=== PATIENT | female | born 1960 | race Native Hawaiian/Other Pacific Islander ===

== ENCOUNTER 2018-05-10 12:30 | Inpatient (IN) | payer SELFPAY ==
[2018-05-10] MEDS ORDERED: MORPHINE IV ONE ×2 (12:52→16:31)
[2018-05-10] MEDS ORDERED: NACL 0.9% 1000 ML 1,000 ML IV ONE (12:52)
[2018-05-10] MEDS ORDERED: ZOFRAN IV ONE (12:52)
[2018-05-10] MEDS ORDERED: PEPCID IV ONE (12:52)
[2018-05-10] MEDS ORDERED: TORADOL IV ONE (12:52)
--- NOTE | 2018-05-10 12:57 | Emergency Department Report ---
ED Abdominal Pain HPI - General Chief Complaint: Abdominal Pain Stated Complaint: STOMACH PAIN/ABD/SIDE Time Seen by Provider: 05/10/18 12:48 Source: patient Mode of arrival: Wheelchair Limitations: No Limitations - History of Present Illness Initial Comments: Patient is a 57-year-old female who is presenting with 3 days of nausea with abdominal pain. Patient's abdominal pain is located in the right upper quadrant. Patient states is also pain in epigastrium and right lower quadrant as well. Patient is very nauseous and has had decreased appetite. Patient last known meal was several days ago and was [place]. The patient denies any fever but does have some occasional chills. Patient has had some loose stools as well. Patient denies cough and congestion. Severity scale (0 -10): 8 Improves With: nothing Worsens With: nothing - Related Data Allergies Allergy/AdvReac Type Severity Reaction Status Date / Time No Known Allergies Allergy Unverified 05/10/18 12:38 ED Review of Systems ROS: Stated complaint: STOMACH PAIN/ABD/SIDE Other details as noted in HPI Comment: All other systems reviewed and negative ED Past Medical Hx - Past Medical History Previous Medical History?: Yes Additional medical history: Spinal stenosis, neuropathy - Surgical History Past Surgical History?: No - Social History Smoking Status: Never Smoker Substance Use Type: None ED Physical Exam - General Limitations: No Limitations General appearance: alert, in no apparent distress - Head Head exam: Present: atraumatic, normocephalic - Eye Eye exam: Present: normal appearance - ENT ENT exam: Present: mucous membranes moist - Neck Neck exam: Present: normal inspection - Respiratory Respiratory exam: Present: normal lung sounds bilaterally. Absent: respiratory distress, wheezes, rales - Cardiovascular Cardiovascular Exam: Present: regular rate, normal rhythm, normal heart sounds. Absent: systolic murmur, diastolic murmur, rubs, gallop - GI/Abdominal GI/Abdominal exam: Present: soft, tenderness (patient with pain in the epigastrium and right upper and lower quadrant. Pain is worse on the right upper quadrant. Patient does have some involuntary guarding in proceeding in the right upper quadrant.), guarding, normal bowel sounds. Absent: distended, rebound, rigid - Extremities Exam Extremities exam: Present: normal inspection - Back Exam Back exam: Present: normal inspection - Neurological Exam Neurological exam: Present: alert, oriented X3 - Psychiatric Psychiatric exam: Present: normal affect, normal mood - Skin Skin exam: Present: warm, dry, intact, normal color. Absent: rash ED Course Vital Signs 05/10/18 12:35 Temperature 98.3 F Pulse Rate 101 H Respiratory 16 Rate Blood Pressure 101/61 O2 Sat by Pulse 98 Oximetry ED Medical Decision Making - Lab Data Result diagrams: 05/10/18 13:30 05/10/18 13:30 Lab Results 05/10/18 05/10/18 Range/Units 13:30 13:30 WBC 11.7 H (4.5-11.0) K/mm3 RBC 4.80 (3.65-5.03) M/mm3 Hgb 13.9 (10.1-14.3) gm/dl Hct 41.1 (30.3-42.9) % MCV 86 (79-97) fl MCH 29 (28-32) pg MCHC 34 (30-34) % RDW 13.9 (13.2-15.2) % Plt Count 205 (140-440) K/mm3 Lymph % (Auto) 8.5 L (13.4-35.0) % [place] % (Auto) 7.7 H (0.0-7.3) % Eos % (Auto) 1.3 (0.0-4.3) % Baso % (Auto) 0.3 (0.0-1.8) % Lymph # 1.0 L (1.2-5.4) K/mm3 [place] # 0.9 H (0.0-0.8) K/mm3 Eos # 0.1 (0.0-0.4) K/mm3 Baso # 0.0 (0.0-0.1) K/mm3 Seg Neutrophils % 82.2 H (40.0-70.0) % Seg Neutrophils # 9.6 H (1.8-7.7) K/mm3 Sodium 138 (137-145) mmol/L Potassium 5.0 (3.6-5.0) mmol/L Chloride 97.6 L (98-107) mmol/L Carbon Dioxide 27 (22-30) mmol/L Anion Gap 18 mmol/L BUN 13 (7-17) mg/dL Creatinine 0.7 (0.7-1.2) mg/dL Estimated GFR > 60 ml/min BUN/Creatinine Ratio 19 % Glucose 227 H (65-100) mg/dL Calcium 9.2 (8.4-10.2) mg/dL Total Bilirubin 0.90 (0.1-1.2) mg/dL Direct Bilirubin 0.3 H (0-0.2) mg/dL Indirect Bilirubin 0.6 mg/dL AST 10 (5-40) units/L ALT 15 (7-56) units/L Alkaline Phosphatase 61 (35-129) units/L Total Protein 7.6 (6.3-8.2) g/dL Albumin 4.0 (3.9-5) g/dL Albumin/Globulin Ratio 1.1 % Lipase 11 L (13-60) units/L - Radiology Data [facility] [address] [place] [address] Cat Scan Report Signed Patient: TASNEEM MCGARRY MR#: [id number] : 1960 Acct:[id number] Age/Sex: 57 / F ADM Date: 05/10/18 Loc: ED Attending Dr: Ordering Physician: MARTINE PERKINS MD Date of Service: 05/10/18 Procedure(s): CT abdomen pelvis w con Accession Number(s): [id number] cc: MARTINE PERKINS MD FINAL REPORT EXAM: CT ABDOMEN PELVIS W CON HISTORY: right sided abd pain TECHNIQUE: CT examination of the ABDOMEN after IV contrast CT examination of the PELVIS after IV contrast PRIORS: None. FINDINGS: Linear scar versus atelectasis both lung bases. Degenerative change in the regional skeleton. No acute fracture. Nonspecific diffusely decreased density of liver parenchyma may reflect fatty infiltration. No visualized focal liver lesion. There is focal fatty sparing adjacent to the gallbladder fossa. Liver size is enlarged with sagittal dimension 21 cm. Large calcified gallstones are noted in the gallbladder lumen. Although the gallbladder wall is not thickened, there is nonspecific pericholecystic fat stranding. There is also slight pericholecystic fluid. These findings raise suspicion of calculus cholecystitis. Slight wall thickening in the adjacent duodenum may be reactive. There is also nonspecific wall thickening and adjacent fat stranding in the hepatic flexure which may be reactive. Differential includes coexistent colitis. There is associated reactive trace free fluid in the right pericolic gutter. Normal-appearing cecum and terminal ileum. Normal appendix.Normal-appearing adrenals and pancreas. Intact normal caliber abdominal aorta and IVC. Nonspecific triangular subcapsular hypodensity in the spleen may reflect a region of ischemia or hypoperfusion. Differential includes infarct, inflammation, or infection. Neoplastic lesion considered less likely given triangular configuration. No renal calculus or hydronephrosis. No evidence of renal mass. No calculus or distention in the visible ureteral segments. Very small fat containing umbilical hernia. No inguinal hernia. No retroperitoneal adenopathy. No evidence of mesenteric mass. Normal-appearing stomach and duodenum. No small bowel distention in the abdomen and pelvis. Slight pelvic free fluid may be reactive. Nonspecific diffuse urinary bladder wall thickening may be artifact of decompre ssion. Differential includes cystitis. Normal-appearing uterus. No adnexal mass. Normal-appearing rectum. Slight distal sigmoid diverticulosis without CT evidence of diverticulitis. No gross ascites, free air, or colonic distention. Nonspecific mural thickening is noted in the proximal sigmoid colon and diffusely throughout the descending colon. IMPRESSION: Findings suggest calculus cholecystitis. Inflammatory type change in the adjacent duodenal C-loop and colonic hepatic flexure may be reactive. Cannot exclude separate duodenitis and/or hepatic flexure colitis Fluid in the right pericolic gutter and pelvis may be reactive Prominent diffuse urinary bladder mural thickening may be artifact of decompression. Differential includes cystitis Mural thickening in the descending colon and proximal sigmoid colon may be edema, inflammation, or nonspecific colitis. Consider also inflammatory bowel disease. Differential includes ischemia Triangular hypodensity in the splenic parenchyma may reflect a region of ischemia or hypoperfusion. Differential includes infarct, inflammation, or infection. Neoplasm considered less likely given triangular configuration Linear scar versus atelectasis both lung bases Hepatomegaly with suggestion of steatosis Slight distal sigmoid diverticulosis Transcribed By: MICHAEL Dictated By: HANNA TIWARI MD Electronically Authenticated By: HANNA TIWARI MD Signed Date/Time: 05/10/181616 DD/ 18 TD/TT: 05/10/181618 - Medical Decision Making Patient was started on Zosyn. Patient made nothing by mouth. Patient readmitted to the hospital. Patient admitted to Dr. Ward. Dr. Dominique with general surgery has been consulted as well. Critical care attestation.: If time is entered above; I have spent that time in minutes in the direct care of this critically ill patient, excluding procedure time. ED Disposition Clinical Impression: Cholecystitis, Colitis Disposition: DC09 OP ADMIT IP TO THIS HOSP Is pt being admited?: Yes Does the pt Need Aspirin: No Condition: Stable Time of Disposition: 16:51
[2018-05-10 13:42] LABS: Basophils % (Auto) 0.3 % (0.0-1.8); Eosinophils # (Auto) 0.1 K/mm3 (0.0-0.4); Eosinophils % (Auto) 1.3 % (0.0-4.3); Hematocrit 41.1 % (30.3-42.9); Hemoglobin 13.9 gm/dl (10.1-14.3); Lymphocytes % (Auto) 8.5 % (13.4-35.0); Mean Corpuscular HGB Conc 34 % (30-34); Mean Corpuscular Volume 86 fl (79-97); Monocytes # (Auto) 0.9 K/mm3 (0.0-0.8); Monocytes % (Auto) 7.7 % (0.0-7.3); Platelet Count 205 K/mm3 (140-440); Red Cell Distribution Width 13.9 % (13.2-15.2)
[2018-05-10 13:59] LABS: Alanine Aminotransferase 15 units/L (7-56); BUN/Creatinine Ratio 19; Bilirubin,Direct 0.3 mg/dL (0-0.2); Blood Urea Nitrogen 13 mg/dL (7-17); Calcium 9.2 mg/dL (8.4-10.2); Hemolysis Index 1
--- NOTE | 2018-05-10 16:17 | Cat Scan Report ---
FINAL REPORT EXAM: CT ABDOMEN PELVIS W CON HISTORY: right sided abd pain TECHNIQUE: CT examination of the ABDOMEN after IV contrast CT examination of the PELVIS after IV contrast PRIORS: None. FINDINGS: Linear scar versus atelectasis both lung bases. Degenerative change in the regional skeleton. No acute fracture. Nonspecific diffusely decreased density of liver parenchyma may reflect fatty infiltration. No visua lized focal liver lesion. There is focal fatty sparing adjacent to the gallbladder fossa. Liver size is enlarged with sagittal dimension 21 cm. Large calcified gallstones are noted in the gallbladder lumen. Although the gallbladder wall is not t hickened, there is nonspecific pericholecystic fat stranding. There is also slight pericholecystic fl uid. These findings raise suspicion of calculus cholecystitis. Slight wall thickening in the adjacent duodenum may be reactive. There is also nonspecific wall thickening and adjacent fat stranding in th e hepatic flexure which may be reactive. Differential includes coexistent colitis. There is associate d reactive trace free fluid in the right pericolic gutter. Normal-appearing cecum and terminal ileum. Normal appendix.Normal-appearing adrenals and pancreas. In tact normal caliber abdominal aorta and IVC. Nonspecific triangular subcapsular hypodensity in the spleen may reflect a region of ischemia or hypo perfusion. Differential includes infarct, inflammation, or infection. Neoplastic lesion considered le ss likely given triangular configuration. No renal calculus or hydronephrosis. No evidence of renal mass. No calculus or distention in the visi ble ureteral segments. Very small fat containing umbilical hernia. No inguinal hernia. No retroperitoneal adenopathy. No rodger dence of mesenteric mass. Normal-appearing stomach and duodenum. No small bowel distention in the abd omen and pelvis. Slight pelvic free fluid may be reactive. Nonspecific diffuse urinary bladder wall thickening may be artifact of decompression. Differential in cludes cystitis. Normal-appearing uterus. No adnexal mass. Normal-appearing rectum. Slight distal sigmoid diverticulosis without CT evidence of diverticulitis. No gross ascites, free air, or colonic distention. Nonspecific mural thickening is noted in the proximal sigmoid colon and diffusely throughout the desc ending colon. IMPRESSION: Findings suggest calculus cholecystitis. Inflammatory type change in the adjacent duodenal C-loop and colonic hepatic flexure may be reactive. Cannot exclude separate duodenitis and/or hepatic flexure c olitis Fluid in the right pericolic gutter and pelvis may be reactive Prominent diffuse urinary bladder mural thickening may be artifact of decompression. Differential inc ludes cystitis Mural thickening in the descending colon and proximal sigmoid colon may be edema, inflammation, or no nspecific colitis. Consider also inflammatory bowel disease. Differential includes ischemia Triangular hypodensity in the splenic parenchyma may reflect a region of ischemia or hypoperfusion. D ifferential includes infarct, inflammation, or infection. Neoplasm considered less likely given trian gular configuration Linear scar versus atelectasis both lung bases Hepatomegaly with suggestion of steatosis Slight distal sigmoid diverticulosis
[2018-05-10] MEDS ORDERED: ZOSYN/NS 4.5GM/100ML 4.5 GM/100 ML VIAL IV ONE (16:31)
[2018-05-10] MEDS ORDERED: TYLENOL PO PRN (18:38)
[2018-05-10] MEDS ORDERED: ZOFRAN IV PRN (18:38)
[2018-05-10] MEDS ORDERED: SODIUM CHLORIDE FLUSH SYRINGE 10 ML IV PRN (18:38)
--- NOTE | 2018-05-10 18:38 | History and Physical Report ---
History of Present Illness Date of examination: 05/10/18 Date of admission: 05/10/18 Chief complaint: RUQ pain for 3 days -severe History of present illness: 57-year-old female presents with 3 days of nausea with abdominal pain.Patient's abdominal pain is in RUQ and Epigastric region.Pain is 10/10.Sharp and associated with Nausea.Pain also periumblical .Intermittent in nature.No diarrhea. Past Medical History Previous Medical History?: Yes Additional medical history: Spinal stenosis, neuropathy Surgical History Past Surgical History?: No Social History Smoking Status: Never Smoker Substance Use Type: None Family History Htn Review of Systems ROS: Stated complaint: STOMACH PAIN/ABD/SIDE Other details as noted in HPI Comment: All other systems reviewed and negative Medications and Allergies Allergies Allergy/AdvReac Type Severity Reaction Status Date / Time No Known Allergies Allergy Unverified 05/10/18 12:38 Active Meds: Active Medications Sodium Chloride (Nacl 0.9% 1000 Ml) 1,000 mls @ 125 mls/hr IV DIRECT MIGEL Exam - Constitutional Vitals: Temp Pulse Resp BP Pulse Ox 98.3 F 101 H 18 101/61 98 05/10/18 12:35 05/10/18 12:35 05/10/18 17:40 05/10/18 12:35 05/10/18 12:35 General appearance: Present: no acute distress, well-nourished - EENT Eyes: Present: PERRL ENT: hearing intact, clear oral mucosa - Neck Neck: Present: supple, normal ROM - Respiratory Respiratory effort: normal Respiratory: bilateral: CTA - Cardiovascular Heart rate: 78 Rhythm: regular Heart Sounds: Present: S1 & S2. Absent: rub, click - Extremities Extremities: no ischemia, pulses intact, pulses symmetrical, No edema Peripheral Pulses: within normal limits - Abdominal General gastrointestinal: Present: soft, tender, non-distended, normal bowel sounds Localized gastrointestinal: tender: RUQ, epigastric periumbilical, guarding: RUQ, epigastric periumbilical, rebound: RUQ, epigastric periumbilical Female genitourinary: Present: normal - Rectal Rectal Exam: deferred - Integumentary Integumentary: Present: clear, warm, dry - Musculoskeletal Musculoskeletal: gait normal, strength equal bilaterally - Psychiatric Psychiatric: appropriate mood/affect, intact judgment & insight - Neurologic Neurologic: CNII-XII intact, moves all extremities - Allied Health Allied health notes reviewed: nursing, case management Results - Labs CBC & Chem 7: 05/10/18 13:30 05/10/18 13:30 Labs: Laboratory Last Values WBC 11.7 K/mm3 (4.5-11.0) H 05/10/18 13:30 RBC 4.80 M/mm3 (3.65-5.03) 05/10/18 13:30 Hgb 13.9 gm/dl (10.1-14.3) 05/10/18 13:30 Hct 41.1 % (30.3-42.9) 05/10/18 13:30 MCV 86 fl (79-97) 05/10/18 13:30 MCH 29 pg (28-32) 05/10/18 13:30 MCHC 34 % (30-34) 05/10/18 13:30 RDW 13.9 % (13.2-15.2) 05/10/18 13:30 Plt Count 205 K/mm3 (140-440) 05/10/18 13:30 Lymph % (Auto) 8.5 % (13.4-35.0) L 05/10/18 13:30 [place] % (Auto) 7.7 % (0.0-7.3) H 05/10/18 13:30 Eos % (Auto) 1.3 % (0.0-4.3) 05/10/18 13:30 Baso % (Auto) 0.3 % (0.0-1.8) 05/10/18 13:30 Lymph # 1.0 K/mm3 (1.2-5.4) L 05/10/18 13:30 [place] # 0.9 K/mm3 (0.0-0.8) H 05/10/18 13:30 Eos # 0.1 K/mm3 (0.0-0.4) 05/10/18 13:30 Baso # 0.0 K/mm3 (0.0-0.1) 05/10/18 13:30 Seg Neutrophils % 82.2 % (40.0-70.0) H 05/10/18 13:30 Seg Neutrophils # 9.6 K/mm3 (1.8-7.7) H 05/10/18 13:30 Sodium 138 mmol/L (137-145) 05/10/18 13:30 Potassium 5.0 mmol/L (3.6-5.0) 05/10/18 13:30 Chloride 97.6 mmol/L (98-107) L 05/10/18 13:30 Carbon Dioxide 27 mmol/L (22-30) 05/10/18 13:30 Anion Gap 18 mmol/L 05/10/18 13:30 BUN 13 mg/dL (7-17) 05/10/18 13:30 Creatinine 0.7 mg/dL (0.7-1.2) 05/10/18 13:30 Estimated GFR > 60 ml/min 05/10/18 13:30 BUN/Creatinine Ratio 19 % 05/10/18 13:30 Glucose 227 mg/dL (65-100) H 05/10/18 13:30 Calcium 9.2 mg/dL (8.4-10.2) 05/10/18 13:30 Total Bilirubin 0.90 mg/dL (0.1-1.2) 05/10/18 13:30 Direct Bilirubin 0.3 mg/dL (0-0.2) H 05/10/18 13:30 Indirect Bilirubin 0.6 mg/dL 05/10/18 13:30 AST 10 units/L (5-40) 05/10/18 13:30 ALT 15 units/L (7-56) 05/10/18 13:30 Alkaline Phosphatase 61 units/L (35-129) 05/10/18 13:30 Total Protein 7.6 g/dL (6.3-8.2) 05/10/18 13:30 Albumin 4.0 g/dL (3.9-5) 05/10/18 13:30 Albumin/Globulin Ratio 1.1 % 05/10/18 13:30 Lipase 11 units/L (13-60) L 05/10/18 13:30 - Imaging and Cardiology Imaging and Cardiology: CT Abdomen IMPRESSION: Findings suggest calculus cholecystitis. Cannot exclude separate duodenitis and/or hepatic flexure colitis Fluid in the right pericolic gutter and pelvis may be reactive Prominent diffuse urinary bladder mural thickening may be artifact of decompression. Differential includes cystitis Mural thickening in the descending colon and proximal sigmoid colon may be edema, inflammation, or nonspecific colitis. Consider also inflammatory bowel disease. Differential includes ischemia Triangular hypodensity in the splenic parenchyma may reflect a region of ischemia or hypoperfusion. Differential includes infarct, inflammation, or infection. Neoplasm considered less likely given triangular configuration Linear scar versus atelectasis both lung bases Hepatomegaly with suggestion of steatosis Slight distal sigmoid diverticulosis Assessment and Plan Advance Directives: Yes (Full code) VTE prophylaxis?: Chemical, Mechanical Plan of care discussed with patient/family: Yes - Patient Problems (1) Cholecystitis Current Visit: Yes Status: Acute Plan to address problem: IV Zosyn initiated pain management Surgery consult requested by Dr Dominique. (2) Colitis Current Visit: Yes Status: Acute Plan to address problem: Inflammatory type change in the adjacent duodenal C-loop and colonic hepatic flexure may be reactive. Colitis possible No diarrhea I am in favor of reactive Colitis Cholecystectomy should resolve the reactive Colitis. GI consult if necessary . (3) UTI (urinary tract infection) Current Visit: Yes Status: Acute Qualifiers: Urinary tract infection type: acute cystitis Plan to address problem: patient on Zosyn (4) Hyperglycemia Current Visit: Yes Status: Acute Plan to address problem: Patient may have T2DM Check A1c Coverage in mean time (5) DVT prophylaxis Current Visit: Yes Status: Acute Plan to address problem: On Scd's and GI prophylaxis
[2018-05-10] MEDS ORDERED: NACL 0.9% 1000 ML 1,000 ML IV SCH (19:00)
[2018-05-10] MEDS: SODIUM CHLORIDE FLUSH SYRINGE 10 ML IV SCH (21:41)
[2018-05-10] MEDS: ZOSYN/NS 4.5GM/100ML 4.5 GM/100 ML VIAL IV SCH (21:41)
[2018-05-10] MEDS: PEPCID IV SCH (21:41)
[2018-05-10] MEDS: D5NS 1,000 ML IV SCH (21:43)
[2018-05-10 23:39] LABS: Bacteria,Urine 1+ /HPF (Negative); Bilirubin,Urine NEG (Negative); Blood,Urine NEG (Negative); Color,Urine Yellow (Yellow)
[2018-05-11] MEDS: DILAUDID IV PRN ×3 (01:58→21:56)
[2018-05-11 05:26] LABS: Basophils % (Auto) 0.5 % (0.0-1.8); Eosinophils # (Auto) 0.3 K/mm3 (0.0-0.4); Eosinophils % (Auto) 4.3 % (0.0-4.3); Hematocrit 36.1 % (30.3-42.9); Lymphocytes % (Auto) 12.7 % (13.4-35.0); Mean Corpuscular HGB Conc 33 % (30-34); Mean Corpuscular Volume 86 fl (79-97); Monocytes # (Auto) 0.6 K/mm3 (0.0-0.8); Platelet Count 175 K/mm3 (140-440); Red Cell Distribution Width 13.5 % (13.2-15.2)
[2018-05-11 05:27] LABS: Alanine Aminotransferase 30 units/L (7-56); Albumin 3.3 g/dL (3.9-5); BUN/Creatinine Ratio 24; Blood Urea Nitrogen 12 mg/dL (7-17); Calcium 8.3 mg/dL (8.4-10.2); Hemolysis Index 1
[2018-05-11] MEDS: ZOSYN/NS 4.5GM/100ML 4.5 GM/100 ML VIAL IV SCH ×3 (05:44→21:56)
[2018-05-11] MEDS: HumaLOG SUB-Q SCH ×3 (06:23→18:38)
[2018-05-11] MEDS: PEPCID IV SCH ×2 (11:03→21:56)
[2018-05-11] MEDS: SODIUM CHLORIDE FLUSH SYRINGE 10 ML IV SCH ×2 (11:04→22:00)
[2018-05-11] MEDS: D5NS 1,000 ML IV SCH (11:05)
--- NOTE | 2018-05-11 11:42 | Progress Note ---
Assessment and Plan Full consult dictated 58 y/o female. RUQ abd pain. +N -V. also dysuria and some diarrhea. Abd - RUQ tenderness CT - consistent with cholecystitis and possible colitis? Urinary bladder mural thickening (consistent with pts symptoms of UTI. imp: as above. unfortunately no radiologist available for on-site review. appears to have significant pericholecystocholic inflammatory changes extending to duodenum and hepatic flexure. Chief complaint: RUQ pain for 3 days -severe History of present illness: 57-year-old female presents with 3 days of nausea with abdominal pain.Patient's abdominal pain is in RUQ and Epigastric region.Pain is 10/10.Sharp and associated with Nausea.Pain also periumblical .Intermittent in nature.No diarrhea. Past Medical History Previous Medical History?: Yes Additional medical history: Spinal stenosis, neuropathy Surgical History Past Surgical History?: No Social History Smoking Status: Never Smoker Substance Use Type: None Family History Htn rec: keep NPO (ice chips) IVF IV antibiotics will monitor clinically may need CT guided cholecystostomy tube drainage if does not improve will consult IR Selected Entries 05/11/18 05/11/18 05:38 05:39 Temperature 97.7 F Pulse Rate 87 Respiratory 18 Rate Blood Pressure 115/68 Laboratory Tests 05/10/18 05/10/18 05/11/18 13:30 13:30 04:00 WBC 11.7 H 8.0 Hgb 13.9 12.0 Hct 41.1 36.1 Sodium Potassium Chloride Carbon Dioxide BUN Creatinine Glucose Total Bilirubin AST ALT Alkaline Phosphatase Lipase 11 L 05/11/18 04:00 WBC Hgb Hct Sodium 141 Potassium 3.7 D Chloride 102.9 Carbon Dioxide 26 BUN 12 Creatinine 0.5 L Glucose 218 H Total Bilirubin 0.60 AST 26 ALT 30 Alkaline Phosphatase 68 Lipase Objective Vital Signs - 12hr 05/11/18 05/11/18 05/11/18 01:52 01:58 02:28 Temperature 98.0 F Pulse Rate 89 Respiratory 18 18 18 Rate Blood Pressure 113/68 O2 Sat by Pulse 96 Oximetry 05/11/18 05/11/18 05:38 05:39 Temperature 97.7 F Pulse Rate 88 87 Respiratory 18 Rate Blood Pressure 115/68 O2 Sat by Pulse 93 96 Oximetry - Labs 05/11/18 04:00 05/11/18 04:00 Diabetes panel 05/10/18 05/11/18 Range/Units 13:30 04:00 Sodium 138 141 (137-145) mmol/L Potassium 5.0 3.7 D (3.6-5.0) mmol/L Chloride 97.6 L 102.9 (98-107) mmol/L Carbon Dioxide 27 26 (22-30) mmol/L BUN 13 12 (7-17) mg/dL Creatinine 0.7 0.5 L (0.7-1.2) mg/dL Glucose 227 H 218 H (65-100) mg/dL Calcium 9.2 8.3 L (8.4-10.2) mg/dL AST 10 26 (5-40) units/L ALT 15 30 (7-56) units/L Alkaline Phosphatase 61 68 (35-129) units/L Total Protein 7.6 6.3 (6.3-8.2) g/dL Albumin 4.0 3.3 L (3.9-5) g/dL Calcium panel 05/10/18 05/11/18 Range/Units 13:30 04:00 Calcium 9.2 8.3 L (8.4-10.2) mg/dL Albumin 4.0 3.3 L (3.9-5) g/dL Pituitary panel 05/10/18 05/11/18 Range/Units 13:30 04:00 Sodium 138 141 (137-145) mmol/L Potassium 5.0 3.7 D (3.6-5.0) mmol/L Chloride 97.6 L 102.9 (98-107) mmol/L Carbon Dioxide 27 26 (22-30) mmol/L BUN 13 12 (7-17) mg/dL Creatinine 0.7 0.5 L (0.7-1.2) mg/dL Glucose 227 H 218 H (65-100) mg/dL Calcium 9.2 8.3 L (8.4-10.2) mg/dL Adrenal panel 05/10/18 05/11/18 Range/Units 13:30 04:00 Sodium 138 141 (137-145) mmol/L Potassium 5.0 3.7 D (3.6-5.0) mmol/L Chloride 97.6 L 102.9 (98-107) mmol/L Carbon Dioxide 27 26 (22-30) mmol/L BUN 13 12 (7-17) mg/dL Creatinine 0.7 0.5 L (0.7-1.2) mg/dL Glucose 227 H 218 H (65-100) mg/dL Calcium 9.2 8.3 L (8.4-10.2) mg/dL Total Bilirubin 0.90 0.60 (0.1-1.2) mg/dL AST 10 26 (5-40) units/L ALT 15 30 (7-56) units/L Alkaline Phosphatase 61 68 (35-129) units/L Total Protein 7.6 6.3 (6.3-8.2) g/dL Albumin 4.0 3.3 L (3.9-5) g/dL
--- NOTE | 2018-05-11 12:24 | Consultation ---
REASON FOR CONSULTATION: 1. Right upper quadrant abdominal pain, rule out cholecystitis. 2. Rule out possible colitis, also noted on CT? HISTORY OF PRESENT ILLNESS: The patient is a pleasant 57-year-old female, who was admitted to the hospital with chief complaint of right upper quadrant abdominal pain accompanied by nausea, but no vomiting. Also, states she has had chills as well as some dysuria. PAST MEDICAL HISTORY: Pertinent for diabetes and spinal stenosis. PAST SURGICAL HISTORY: Status post varicose vein removal. ALLERGIES: No known allergies. MEDICATIONS: Include metformin, gabapentin and Celebrex as well as some other NSAIDs. FAMILY HISTORY: Diabetes. SOCIAL HISTORY: Denies any smoking or drinking. PHYSICAL EXAMINATION: GENERAL: At this time reveals the patient is to be awake, alert, cooperative, in no acute distress. States she is " since the time of her admission, but the right upper quadrant pain still persists. VITAL SIGNS: Show her to be afebrile with a temperature of 98.0, blood pressure is 115/68, pulse of 88, respirations of 18. HEENT: Examination of sclera revealed to be nonicteric. ABDOMEN: Examination of the abdomen reveals localized right upper quadrant as well as epigastric tenderness with mild guarding. Bowel sounds are hypoactive. LABORATORY DATA: Lab work at present includes a CBC, which shows a white count of 8000 is noted that it was 11.7 on admission. H and H is 12 and 36. Electrolytes are essentially within normal limits. Glucose is high at 218. LFTs are normal including total bilirubin of 0.6, AST of 26, ALT of 30, alkaline phosphatase is 68. Lipase is 11. A CT scan of the abdomen has been performed, whose report I have read. Radiology at present to review films personally. Films do show what appears to be extensive pericholecystic fluid and inflammation consistent with acute cholecystitis. Inflammation was also noted around the duodenum and possibly the hepatic flexure. Of note, another area of inflammation is also noted in the descending colon and proximal sigmoid colon. There is also some mural thickening described in the urinary bladder consistent with the patient's recent history of cystitis and UTI. IMPRESSION: At this time is that of a 57-year-old female, 1. Rule out cholecystitis with significant pericholecystic fluid inflammation. 2. Rule out colitis? 3. Rule out urinary tract infection/cystitis. RECOMMENDATIONS: We would recommend to keep the patient n.p.o. on IV fluid hydration at this time. Also, IV antibiotics, which has already been started (Zosyn). Will monitor the patient clinically. The patient may need CT-guided cholecystostomy tube drainage if she does not clinically improve as this area is significantly inflamed and there would be increased morbidity and mortality attempting to operate to perform surgical cholecystectomy at this time. I will obtain also Interventional Radiology consult for possible cholecystostomy tube drainage. We will follow closely with you. Thank you very much for consultation. JOB# [id number] FP/NTS
--- NOTE | 2018-05-11 12:50 | Progress Note ---
Assessment and Plan Assessment and plan: Cholecystitis - CT is suggestive of cholecystitis - Surgery consulted, for possible cholecystectomy - Patient nothing by mouth, on IV antibiotics, IV fluid, nothing by mouth Colitis - Likely reactive due to cholecystitis UTI: Continue antibiotics Diabetes mellitus with hyperglycemia -Patient is on sliding scale insulin, Accu-Chek DVT prophylaxis - on SCDs History Interval history: Patient was seen and evaluated this morning, patient's complaining right upper quadrant pain. Hospitalist Physical - Physical exam Narrative exam: Not in cardiopulmonary distress. The patient appeared well nourished and normally developed. Vital signs as documented. Head exam is unremarkable. No scleral icterus . Neck is without jugular venous distension, thyromegaly, or carotid bruits. Lungs are clear to auscultation. Cardiac exam reveals regular rate and Rhythm. First and second heart sounds normal. No murmurs, rubs or gallops. Abdominal exam reveals normal bowel sounds, right upper quadrant tenderness. Extremities are nonedematous and both femoral and pedal pulses are normal. 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 No focal weakness. - Constitutional Vitals: Temp Pulse Resp BP Pulse Ox 97.7 F 87 18 115/68 96 05/11/18 05:38 05/11/18 05:39 05/11/18 05:38 05/11/18 05:38 05/11/18 05:39 General appearance: Present: no acute distress, well-nourished Results - Labs CBC & Chem 7: 05/11/18 04:00 05/11/18 04:00 Labs: Laboratory Last Values WBC 8.0 K/mm3 (4.5-11.0) 05/11/18 04:00 RBC 4.20 M/mm3 (3.65-5.03) 05/11/18 04:00 Hgb 12.0 gm/dl (10.1-14.3) 05/11/18 04:00 Hct 36.1 % (30.3-42.9) 05/11/18 04:00 MCV 86 fl (79-97) 05/11/18 04:00 MCH 29 pg (28-32) 05/11/18 04:00 MCHC 33 % (30-34) 05/11/18 04:00 RDW 13.5 % (13.2-15.2) 05/11/18 04:00 Plt Count 175 K/mm3 (140-440) 05/11/18 04:00 Lymph % (Auto) 12.7 % (13.4-35.0) L 05/11/18 04:00 [place] % (Auto) 8.0 % (0.0-7.3) H 05/11/18 04:00 Eos % (Auto) 4.3 % (0.0-4.3) 05/11/18 04:00 Baso % (Auto) 0.5 % (0.0-1.8) 05/11/18 04:00 Lymph # 1.0 K/mm3 (1.2-5.4) L 05/11/18 04:00 [place] # 0.6 K/mm3 (0.0-0.8) 05/11/18 04:00 Eos # 0.3 K/mm3 (0.0-0.4) 05/11/18 04:00 Baso # 0.0 K/mm3 (0.0-0.1) 05/11/18 04:00 Seg Neutrophils % 74.5 % (40.0-70.0) H 05/11/18 04:00 Seg Neutrophils # 6.0 K/mm3 (1.8-7.7) 05/11/18 04:00 Sodium 141 mmol/L (137-145) 05/11/18 04:00 Potassium 3.7 mmol/L (3.6-5.0) D 05/11/18 04:00 Chloride 102.9 mmol/L (98-107) 05/11/18 04:00 Carbon Dioxide 26 mmol/L (22-30) 05/11/18 04:00 Anion Gap 16 mmol/L 05/11/18 04:00 BUN 12 mg/dL (7-17) 05/11/18 04:00 Creatinine 0.5 mg/dL (0.7-1.2) L 05/11/18 04:00 Estimated GFR > 60 ml/min 05/11/18 04:00 BUN/Creatinine Ratio 24 % 05/11/18 04:00 Glucose 218 mg/dL (65-100) H 05/11/18 04:00 POC Glucose 218 (70-105) H 05/11/18 05:57 Calcium 8.3 mg/dL (8.4-10.2) L 05/11/18 04:00 Total Bilirubin 0.60 mg/dL (0.1-1.2) 05/11/18 04:00 Direct Bilirubin 0.3 mg/dL (0-0.2) H 05/10/18 13:30 Indirect Bilirubin 0.6 mg/dL 05/10/18 13:30 AST 26 units/L (5-40) 05/11/18 04:00 ALT 30 units/L (7-56) 05/11/18 04:00 Alkaline Phosphatase 68 units/L (35-129) 05/11/18 04:00 Total Protein 6.3 g/dL (6.3-8.2) 05/11/18 04:00 Albumin 3.3 g/dL (3.9-5) L 05/11/18 04:00 Albumin/Globulin Ratio 1.1 % 05/11/18 04:00 Lipase 11 units/L (13-60) L 05/10/18 13:30 Urine Color Yellow (Yellow) 05/10/18 22:45 Urine Turbidity Clear (Clear) 05/10/18 22:45 Urine pH 5.0 (5.0-7.0) 05/10/18 22:45 Ur Specific [place] 1.060 (1.003-1.030) H 05/10/18 22:45 Urine Protein 30 mg/dl mg/dL (Negative) 05/10/18 22:45 Urine Glucose (UA) Neg mg/dL (Negative) 05/10/18 22:45 Urine Ketones Neg mg/dL (Negative) 05/10/18 22:45 Urine Blood Neg (Negative) 05/10/18 22:45 Urine Nitrite Pos (Negative) 05/10/18 22:45 Urine Bilirubin Neg (Negative) 05/10/18 22:45 Urine Urobilinogen 4.0 mg/dL (<2.0) 05/10/18 22:45 Ur Leukocyte Esterase Neg (Negative) 05/10/18 22:45 Urine WBC (Auto) 24.0 /HPF (0.0-6.0) H 05/10/18 22:45 Urine RBC (Auto) 2.0 /HPF (0.0-6.0) 05/10/18 22:45 U Epithel Cells (Auto) < 1.0 /HPF (0-13.0) 05/10/18 22:45 Urine Bacteria (Auto) 1+ /HPF (Negative) 05/10/18 22:45 Urine WBC Clumps Few /HPF 05/10/18 22:45 Ur Yeast w Hyphae Few /HPF 05/10/18 22:45 Urine Yeast (Budding) Few /HPF 05/10/18 22:45
[2018-05-11] MEDS: NACL 0.45% 1000 ML 1,000 ML IV SCH (13:02)
[2018-05-11 13:23] LABS: INR 1.11 (0.87-1.13)
[2018-05-12] MEDS: HumaLOG SUB-Q SCH ×3 (01:19→11:32)
[2018-05-12] MEDS: NACL 0.45% 1000 ML 1,000 ML IV SCH (01:20)
[2018-05-12 05:14] LABS: Basophils % (Auto) 0.6 % (0.0-1.8); Eosinophils # (Auto) 0.4 K/mm3 (0.0-0.4); Eosinophils % (Auto) 6.2 % (0.0-4.3); Hematocrit 36.6 % (30.3-42.9); Hemoglobin 12.1 gm/dl (10.1-14.3); Lymphocytes # (Auto) 1.3 K/mm3 (1.2-5.4); Mean Corpuscular HGB Conc 33 % (30-34); Mean Corpuscular Volume 87 fl (79-97); Monocytes # (Auto) 0.5 K/mm3 (0.0-0.8); Monocytes % (Auto) 8.2 % (0.0-7.3); Platelet Count 178 K/mm3 (140-440); Red Blood Count 4.21 M/mm3 (3.65-5.03); Red Cell Distribution Width 13.2 % (13.2-15.2)
[2018-05-12 05:34] LABS: Alanine Aminotransferase 44 units/L (7-56); Albumin 3.1 g/dL (3.9-5); BUN/Creatinine Ratio 16; Blood Urea Nitrogen 8 mg/dL (7-17); Calcium 8.7 mg/dL (8.4-10.2); Hemolysis Index 5
[2018-05-12] MEDS: ZOSYN/NS 4.5GM/100ML 4.5 GM/100 ML VIAL IV SCH ×2 (05:36→14:12)
--- NOTE | 2018-05-12 10:19 | Magnetic Resonance Report ---
MR ABDOMEN MRCP History: Cholecystitis, mirizzi syndrome. Technique: Multiple T1 and T2-weighted images with and without fat suppression. Thick and thin slab MRCP images. Radial MRCP images. Findings: Compared to the CT abdomen pelvis with contrast dated 05/12/18. A large gallstone measuring 3.9 x 2.2 x 2.6 cm is identified in the neck of the gallbladder. 3 or 4 additional stones measuring up to 1.5 cm are identified in the fundus of the gallbladder. The gallbladder is mildly dilated with diffuse wall thickening and surrounding fluid suggesting acute cholecystitis. On the MRCP images, the large gallstone compresses the common hepatic duct resulting in minimal to mild intrahepatic biliary dilatation consistent with mirizzi syndrome. The common bile duct and pancreatic duct are normal. The liver parenchyma, pancreas, spleen, kidneys, adrenal glands and visualized bowel loops are unremarkable. Trace pleural effusions and ascites is noted. 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 See above.
[2018-05-12] MEDS: PEPCID IV SCH (10:38)
[2018-05-12] MEDS: SODIUM CHLORIDE FLUSH SYRINGE 10 ML IV SCH (10:39)
[2018-05-12] MEDS: DILAUDID IV PRN (11:25)
--- NOTE | 2018-05-12 11:34 | Progress Note ---
Assessment and Plan Pt status quo. still RUQ abd pain Abd exam - status quo discussed case with IR Dr. Craig - feel that perc cholecystostomy tube draina ge will not help because large impacted stone is compressing the CBD and draining will not improve situation. Extensive surrounding inflammatory changes with high risks of morbidity and complications including duodenal inj, biliary duct injuries etc. Rec - [place] transfer Discussed with Dr. Kev Collins in [place]. He will check to which M.D. pt should be transferred to and will contact us. stable continue present care Selected Entries 05/12/18 05/12/18 07:15 11:25 Temperature 98.6 F Pulse Rate 83 Respiratory 18 Rate Blood Pressure 129/74 [Right] Laboratory Tests 05/12/18 05/12/18 05:00 05:00 WBC 6.3 Hgb 12.1 Hct 36.6 Sodium 141 Potassium 3.6 Chloride 102.1 BUN 8 Creatinine 0.5 L Total Bilirubin 0.70 AST 31 ALT 44 Alkaline Phosphatase 97 Objective Vital Signs - 12hr 05/12/18 05/12/18 05/12/18 00:50 05:04 07:15 Temperature 97.9 F 98.2 F 98.6 F Pulse Rate 79 86 83 Respiratory 18 18 18 Rate Respiratory Rate [Abdomen] Blood Pressure 111/62 123/70 Blood Pressure 129/74 [Right] O2 Sat by Pulse 95 96 95 Oximetry 05/12/18 05/12/18 10:00 11:25 Temperature Pulse Rate Respiratory 18 Rate Respiratory 18 Rate [Abdomen] Blood Pressure Blood Pressure [Right] O2 Sat by Pulse Oximetry - Labs 05/12/18 05:00 05/12/18 05:00 Diabetes panel 05/11/18 05/12/18 Range/Units 04:00 05:00 Sodium 141 (137-145) mmol/L Potassium 3.6 (3.6-5.0) mmol/L Chloride 102.1 (98-107) mmol/L Carbon Dioxide 25 (22-30) mmol/L BUN 8 (7-17) mg/dL Creatinine 0.5 L (0.7-1.2) mg/dL Glucose 132 H (65-100) mg/dL Hemoglobin A1c 8.6 H (4-6) % Calcium 8.7 (8.4-10.2) mg/dL AST 31 (5-40) units/L ALT 44 (7-56) units/L Alkaline Phosphatase 97 (35-129) units/L Total Protein 6.5 (6.3-8.2) g/dL Albumin 3.1 L (3.9-5) g/dL Calcium panel 05/12/18 Range/Units 05:00 Calcium 8.7 (8.4-10.2) mg/dL Albumin 3.1 L (3.9-5) g/dL Pituitary panel 05/12/18 Range/Units 05:00 Sodium 141 (137-145) mmol/L Potassium 3.6 (3.6-5.0) mmol/L Chloride 102.1 (98-107) mmol/L Carbon Dioxide 25 (22-30) mmol/L BUN 8 (7-17) mg/dL Creatinine 0.5 L (0.7-1.2) mg/dL Glucose 132 H (65-100) mg/dL Calcium 8.7 (8.4-10.2) mg/dL Adrenal panel 05/12/18 Range/Units 05:00 Sodium 141 (137-145) mmol/L Potassium 3.6 (3.6-5.0) mmol/L Chloride 102.1 (98-107) mmol/L Carbon Dioxide 25 (22-30) mmol/L BUN 8 (7-17) mg/dL Creatinine 0.5 L (0.7-1.2) mg/dL Glucose 132 H (65-100) mg/dL Calcium 8.7 (8.4-10.2) mg/dL Total Bilirubin 0.70 (0.1-1.2) mg/dL AST 31 (5-40) units/L ALT 44 (7-56) units/L Alkaline Phosphatase 97 (35-129) units/L Total Protein 6.5 (6.3-8.2) g/dL Albumin 3.1 L (3.9-5) g/dL
[2018-05-12 14:32] VITALS: BP 143/75
--- NOTE | 2018-05-12 15:47 | Discharge Summary ---
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 Inflammatory type change in the adjacent duodenal C-loop and colonic hepatic flexure may be reactive. Cannot exclude separate duodenitis and/or hepatic flexure colitis Fluid in the right pericolic gutter and pelvis may be reactive Prominent diffuse urinary bladder mural thickening may be artifact of decompression. Differential includes cystitis Mural thickening in the descending colon and proximal sigmoid colon may be edema, inflammation, or nonspecific colitis. Consider also inflammatory bowel disease. Differential includes ischemia Triangular hypodensity in the splenic parenchyma may reflect a region of ischemia or hypoperfusion. Differential includes infarct, inflammation, or infection. 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 Patient was admitted with the impression of cholecystitis and was treated with IV antibiotic, bowel rest and General surgeon Dr Dominique was consulted and after reviewing the CT he recommends to transfer to higher center here is his recommendations "discussed case with IR Dr. Craig - feel that perc cholecystostomy tube drainage will not help because large impacted stone is compressing the CBD and draining will not improve situation. Extensive surrounding inflammatory changes with high risks of morbidity and complications including duodenal inj, biliary duct injuries etc. Rec - [place] transfer. Discussed with Dr. Kev Collins in [place]. He will check to which M.D. pt should be transferred to and will contact us." Patient's abdominal pain was controlled, no nausea and vomiting. patient was hemodynamically stable at the time of transfer. Disposition: DC/TX-70 ANOTHER TYPE HLTHCARE Time spent for discharge: 32 minutes - Discharge Diagnoses (1) Cholecystitis Status: Acute (2) Colitis Status: Acute (3) Hyperglycemia Status: Acute (4) UTI (urinary tract infection) Status: Acute Qualifiers: Urinary tract infection type: acute cystitis Core Measure Documentation - Palliative Care Palliative Care/ Comfort Measures: Not Applicable - Core Measures Any of the following diagnoses?: none Exam - Physical Exam Narrative exam: Not in cardiopulmonary distress. The patient appeared well nourished and normally developed. Vital signs as documented. Head exam is unremarkable. No scleral icterus . Neck is without jugular venous distension, thyromegaly, or carotid bruits. Lungs are clear to auscultation. Cardiac exam reveals regular rate and Rhythm. First and second heart sounds normal. No murmurs, rubs or gallops. Abdominal exam reveals normal bowel sounds, right upper quadrant tenderness. Extremities are nonedematous and both femoral and pedal pulses are normal. 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 No focal weakness. - Constitutional Vitals: Temp Pulse Resp BP Pulse Ox 98.9 F 79 18 143/75 98 05/12/18 14:29 05/12/18 14:29 05/12/18 11:55 05/12/18 14:29 05/12/18 14:29 Plan Activity: no restrictions Weight Bearing Status: Full Weight Bearing Diet: other (NPO) Additional Instructions: Petkhadar will be transferred to [place] Follow up with: JUNAID DENNY MD [Primary Care Provider] - 3-5 Days
--- NOTE | 2018-05-12 16:15 | Consultation ---
History of Present Illness - Reason for Consult Consult date: 05/12/18 gallbladder distension - History of Present Illness Patient with intermittent history of right upper quadrant abdominal pain which has never been fully evaluated. Prior to her presentation, the abdominal pain became excruciating driving her presentation to the ER. Her initial CT demonstrates enlargement of the gallbladder. The gallbladder contains 3 stones within the body of the gallbladder as well as a large impacted stone in the gallbladder neck. An MRCP was ordered which demonstrates intrahepatic biliary ductal dilatation consistent with Mirrizi syndrome. Medications and Allergies Allergies Allergy/AdvReac Type Severity Reaction Status Date / Time No Known Allergies Allergy Unverified 05/10/18 12:38 Home Medications Medication Instructions Recorded Confirmed Last Taken Type Gabapentin [Neurontin] 600 mg PO TID 05/12/18 05/12/18 05/07/18 10:00 History Meloxicam [Mobic] 7.5 mg PO BID 05/12/18 05/12/18 Unknown History Methocarbamol [Robaxin TAB] 750 mg PO TID 05/12/18 05/12/18 Unknown History metFORMIN [Glucophage] 3,000 mg PO TID 05/12/18 05/12/18 Unknown History Active Meds: Active Medications Acetaminophen (Tylenol) 650 mg PO Q4H PRN PRN Reason: Pain MILD(1-3)/Fever >100.5/MOORE Famotidine (Pepcid) 20 mg IV BID MIGEL Last Admin: 05/12/18 10:38 Dose: 20 mg Documented by: Hydromorphone HCl (Dilaudid) 1 mg IV Q3H PRN PRN Reason: Pain , Severe (7-10) Last Admin: 05/12/18 11:25 Dose: 1 mg Documented by: Piperacillin Sod/Tazobactam Sod (Zosyn/Ns 4.5gm/100ml) 4.5 gm in 100 mls @ 200 mls/hr IV Q8HR MIGEL; Protocol Last Admin: 05/12/18 14:12 Dose: 200 mls/hr Documented by: Sodium Chloride (Nacl 0.45% 1000 Ml) 1,000 mls @ 75 mls/hr IV DIRECT MIGEL Last Admin: 05/12/18 01:20 Dose: 75 mls/hr Documented by: Insulin Human Lispro (Humalog) 0 unit SUB-Q Q6HR MIGEL; Protocol Last Admin: 05/12/18 11:32 Dose: Not Given Documented by: Ondansetron HCl (Zofran) 4 mg IV Q8H PRN PRN Reason: Nausea And Vomiting Last Admin: 05/11/18 12:55 Dose: 4 mg Documented by: Sodium Chloride (Sodium Chloride Flush Syringe 10 Ml) 10 ml IV BID MIGEL Last Admin: 05/12/18 10:39 Dose: 10 ml Documented by: Sodium Chloride (Sodium Chloride Flush Syringe 10 Ml) 10 ml IV PRN PRN PRN Reason: LINE FLUSH Review of Systems All systems: negative Exam - Constitutional Vitals: Temp Pulse Resp BP Pulse Ox 98.0 F 79 18 143/75 98 05/12/18 14:30 05/12/18 14:30 05/12/18 14:30 05/12/18 14:30 05/12/18 14:30 General appearance: Present: no acute distress - EENT Eyes: Present: PERRL ENT: hearing intact - Neck Neck: Present: supple, normal ROM - Respiratory Respiratory effort: normal - Extremities Extremities: no ischemia - Abdominal General gastrointestinal: Present: soft Female genitourinary: Present: deferred - Rectal Rectal Exam: deferred - Psychiatric Psychiatric: appropriate mood/affect, cooperative - Neurologic Neurologic: no focal deficits Results - Labs CBC & Chem 7: 05/12/18 05:00 05/12/18 05:00 Labs: Abnormal lab results 05/12/18 05/12/18 05/12/18 Range/Units 01:21 04:59 05:00 [place] % (Auto) 8.2 H (0.0-7.3) % Eos % (Auto) 6.2 H (0.0-4.3) % Creatinine (0.7-1.2) mg/dL Glucose (65-100) mg/dL POC Glucose 133 H 122 H (70-105) Albumin (3.9-5) g/dL 05/12/18 05/12/18 Range/Units 05:00 11:21 [place] % (Auto) (0.0-7.3) % Eos % (Auto) (0.0-4.3) % Creatinine 0.5 L (0.7-1.2) mg/dL Glucose 132 H (65-100) mg/dL POC Glucose 121 H (70-105) Albumin 3.1 L (3.9-5) g/dL - Imaging and Cardiology CT scan - abdomen: image reviewed MRI - abdomen: image reviewed Assessment and Plan 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 The patient will need surgical removal of the gallbladder.
== END 2018-05-12 17:30 | disposition short-term general hospital (02) | DRG 445 ==
LOC: ED 12:30 → 3B-SURG 18:28
PROVIDERS: ADMIT Internal Medicine; ATTEND Internal Medicine
DX: K80.11 Calculus of gallbladder with chronic cholecystitis with obstruction (principal); N30.00 Acute cystitis without hematuria; K52.9 Noninfective gastroenteritis and colitis, unspecified; G62.9 Polyneuropathy, unspecified; M48.00 Spinal stenosis, site unspecified; E11.65 Type 2 diabetes mellitus with hyperglycemia
CPT/HCPCS: 36415; 74177; 74181; 80048; 80053; 80076; 81001; 82962; 83036; 83690; 85025; 85610; 85730; G0378; J1170; J1815; J1885; J2270; J2405; J2543; J7030; J7042; Q9967